=== PATIENT | female | born 1995 | race African-American/Black ===

== ENCOUNTER 2021-07-20 07:20 | Emergency (ER) | payer MEDICAID, OTHER ==
[~2021-07-20] VITALS: Ht 160 cm; Wt 79.0 kg
[2021-07-20] MEDS ORDERED: KETOROLAC 60MG/2ML VIAL IM ONE (08:00)
[2021-07-20] MEDS ORDERED: MORPHINE SULFATE 10 MG/ML CPJ IM ONE (08:00)
[2021-07-20 08:42] LABS: CLARITY URINE CLEAR (CLEAR); COLOR URINE YELLOW (YELLOW); KETONES URINE TRACE (NEGATIVE); LEUKOCYTE ESTERASE URINE NEGATIVE (NEGATIVE); NITRITE URINE NEGATIVE (NEGATIVE); OCCULT BLOOD URINE NEGATIVE (NEGATIVE); PROTEIN URINE NEGATIVE (NEGATIVE)
[2021-07-20] MEDS ORDERED: KETOROLAC 60MG/2ML VIAL IM NR (09:30)
[2021-07-20 09:38] VITALS: BP 144/90
[2021-07-20 09:38] LABS: BASOPHILS % 0.7 % (0.0-2.0); HEMATOCRIT. 43.2 % (36.0-48.0); LYMPHOCYTES % 31.3 % (20.0-50.0); MEAN CORPUSCULAR HEMOGLOBIN 26.5 pg (28.0-32.0); MEAN CORPUSCULAR VOLUME 81.7 fL (81.0-99.0); MEAN PLATELET VOLUME 11.8 fl (7.4-10.4); MONOCYTES % 8.7 % (2.0-8.0); NEUTROPHILS % 58.3 % (40.0-76.0); PLATELET 165 x1000/uL (130-400); RED BLOOD CELL COUNT 5.29 mill/uL (4.2-5.4); RED CELL DISTRIBUTION WIDTH 13.2 % (11.6-14.6)
[2021-07-20 09:57] LABS: HCG SCREEN NEGATIVE
[2021-07-20 09:59] LABS: CHLORIDE 109 mEq/L (98-107)
[2021-07-20] MEDS ORDERED: LACT1CAP78 MT (10:19)
[2021-07-20] MEDS ORDERED: METR-167 MT (10:19)
== END 2021-07-20 10:46 | disposition home or self-care (01) ==
LOC: ER 07:26
DX: N76.0 Acute vaginitis (principal); Z98.890 Other specified postprocedural states
CPT/HCPCS: 36415; 80053; 81003; 83690; 84703; 85025; 87210; 96372; 99283; J1885; J2270